=== PATIENT | female | born 1990 | race Two or more races ===

== ENCOUNTER 2016-08-23 | Outpatient (CLI) | payer OTHER | END 2016-08-23 01:57 | disposition EMS.NT | DX: R05 Cough (principal) ==

== ENCOUNTER 2016-08-23 02:42 | Emergency (ER) | payer OTHER ==
[2016-08-23] MEDS ORDERED: ACETAMINOPHEN 325 MG TABLET PO STA (04:04)
[2016-08-23] MEDS ORDERED: ACETAMINOPHEN 325 MG TABLET PO ONE (04:06)
== END 2016-08-23 04:13 | disposition home or self-care (01) ==
DX: J10.1 Influenza due to other identified influenza virus with other respiratory manifestations (principal)
CPT/HCPCS: 87275; 87276; 99283; A9270

== ENCOUNTER 2016-10-13 | Outpatient (CLI) | payer OTHER | END 2016-10-13 07:00 | disposition home or self-care (01) ==

== ENCOUNTER 2017-12-02 12:54 | Emergency (ER) | payer MEDICAID, OTHER ==
[2017-12-02 13:09] VITALS: BP 111/67
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
--- NOTE | 2017-12-02 14:35 | CT Preliminary Report ---
Exam: CT FACIAL BONES W/O IMPRESSION: 1. Moderate right mid face superficial edema. 2. No bony abnormality. [facility] SITE ID: [id number]
--- NOTE | 2017-12-02 14:41 | CT Report ---
EXAM: CT MAXILLOFACIAL WITHOUT CONTRAST EXAM DATE: 12/02/2017 02:05 PM. CLINICAL HISTORY: Right orbital injury. COMPARISONS: None. TECHNIQUE: Thin-section axial images were acquired of the face without contrast. Post-processing: Cor onal and sagittal reformats. Other: None. In accordance with CT protocol optimization, one or more of the following dose reduction techniques w ere utilized for this exam: automated exposure control, adjustment of mA and/or KV based on patient s ize, or use of iterative reconstructive technique. FINDINGS: Soft Tissue: Moderate amount of edema subcutaneous fat right mid face, small amount of edema subjacen t to thickened right platysma in the same region, and mild right pre-septal edema. No focal hematoma nor emphysema. Orbits: Symmetric and unremarkable. Bones: No fracture or bone lesion. Temporomandibular Joints: The temporomandibular joints are symmetric and normally located. Sinuses: Normal. No mucosal thickening or fluid levels. Other: None. IMPRESSION: 1. Moderate right mid face superficial edema. 2. No bony abnormality. [facility] Referring Provider Line: [phone] SITE ID: [id number]
== END 2017-12-02 14:57 | disposition home or self-care (01) ==
LOC: ED 12:54
DX: S00.83XA Contusion of other part of head, initial encounter (principal); W51.XXXA Accidental striking against or bumped into by another person, initial encounter
CPT/HCPCS: 70486; 99282

== ENCOUNTER 2018-05-02 15:53 | Outpatient (CLI) | payer OTHER | END 2018-05-02 15:54 | disposition critical access hospital (66) | LOC: EMS 15:53 | PROVIDERS: ATTEND Surgery | DX: R45.851 Suicidal ideations (principal) | CPT/HCPCS: A0425; A0429 ==

== ENCOUNTER 2018-05-02 16:16 | Emergency (ER) | payer MEDICAID, OTHER ==
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
[2018-05-02 16:41] LABS: BASOPHILS # (AUTO) 0.1 10^3/uL (0.0-0.1); BASOPHILS % (AUTO) 0.5 %; EOSINOPHILS % (AUTO) 0.4 %; HGB - HEMOGLOBIN 14.4 g/dL (12.0-16.0); LYMPHOCYTES # (AUTO) 1.8 10^3/uL (1.5-3.5); LYMPHOCYTES % (AUTO) 16.1 %; MEAN CORPUSCULAR HEMOGLOBIN 32.2 pg (27.0-31.0); MEAN CORPUSCULAR HGB CONC 34.9 g/dL (32.0-36.0); MEAN CORPUSCULAR VOLUME 92.3 fL (81.0-99.0); MEAN PLATELET VOLUME 9.7 fL (7.9-10.8); MONOCYTES # (AUTO) 0.8 10^3/uL (0.0-1.0); NEUTROPHILS # (AUTO) 8.3 10^3/uL (1.5-6.6); PLT - PLATELET COUNT 220 10^3/uL (130-450); RED BLOOD COUNT 4.49 10^6/uL (4.20-5.40); RED CELL DISTRIBUTION WIDTH 13.6 % (12.0-15.0); WHITE BLOOD COUNT 10.9 x10^3/uL (4.8-10.8)
[2018-05-02 16:56] LABS: ALBUMIN 4.8 g/dL (3.2-5.5); ALBUMIN/GLOBULIN RATIO 1.2 (1.0-2.2); ALKALINE PHOSPHATASE 93 IU/L (42-121); ALT ALANINE AMINOTRANSFERASE 19 IU/L (10-60); AST ASPARTATE AMINOTRANSFERASE 24 IU/L (10-42); BILIRUBIN,TOTAL 0.8 mg/dL (0.2-1.0); BUN - BLOOD UREA NITROGEN 12 mg/dL (6-20); CALCIUM 9.3 mg/dL (8.5-10.3); CARBON DIOXIDE - CO2 26 mmol/L (21-32); CHLORIDE 103 mmol/L (101-111); CREATININE 0.9 mg/dL (0.4-1.0); GFR - MDRD 76 (>89); GLUCOSE 100 mg/dL (70-100); LIPASE 24 U/L (22-51); SALICYLATE < 6.0 mg/dL; SODIUM 138 mmol/L (135-145); TOTAL PROTEIN 8.7 g/dL (6.7-8.2)
[2018-05-02 16:57] LABS: ACETAMINOPHEN < 10 ug/mL (10-30)
[2018-05-02 17:46] LABS: MUDS CUTOFF CONCENTRATIONS CUTOFF CONC BELOW:
[2018-05-02 17:49] LABS: BILIRUBIN,URINE NEGATIVE (NEGATIVE); GLUCOSE, URINE (UA) NEGATIVE (NEGATIVE); KETONES,URINE (UA) 15 mg/dL (NEGATIVE); LEUKOCYTE ESTERASE, URINE NEGATIVE (NEGATIVE); NITRITE,URINE POSITIVE (NEGATIVE); OCCULT BLOOD,URINE MODERATE (NEGATIVE); PROTEIN,URINE TRACE mg/dL (NEGATIVE); UROBILINOGEN,URINE 0.2 (NORMAL) E.U./dL (NORMAL)
[2018-05-02 17:55] LABS: CLARITY,URINE CLOUDY (CLEAR); HCG UR QUAL NEGATIVE
[2018-05-02 17:59] LABS: AMPHETAMINE SCREEN,URINE NEGATIVE (NEGATIVE); BENZODIAZEPINES SCREEN, URINE NEGATIVE (NEGATIVE); COCAINE SCREEN URINE NEGATIVE (NEGATIVE); METHADONE SCREEN, URINE NEGATIVE (NEGATIVE); METHAMPHETAMINES SCREEN, URINE NEGATIVE (NEGATIVE); OPIATE SCREEN, URINE NEGATIVE (NEGATIVE); OXYCODONE SCREEN, URINE NEGATIVE (NEGATIVE); PROPOXYPHENE SCREEN, URINE NEGATIVE (NEGATIVE); TRICYCLIC ANTIDEPRESSANT,URINE NEGATIVE (NEGATIVE)
[2018-05-02 18:00] LABS: BACTERIA,URINE Many /HPF (None Seen); RBC,URINE 0-5 /HPF (0-5); SQUAMOUS EPITHELIAL CELL,UR MANY Squamous (<= Few)
[2018-05-02] MEDS ORDERED: SERTRALINE 25 MG TABLET PO STA (21:45)
--- NOTE | 2018-05-02 22:00 | TELEPSYCH PHYS NOTE ---
Telepsych Note - CHIEF COMPLAINT/HX OF PRESENT ILLNESS Cheif Complaint and History of Present Illness: Chief Complaint: "I wanted to come here before I did something." HPI: The patient is a 27-year-old female with a history of depression. She presented the hospital complaining of depressed mood and suicidal thoughts or plan to cut herself or walk into traffic. The patient cites marital problems as the trigger for the depressed mood. She states that she has been having suicidal thoughts for the past few weeks. She is prescribed Zoloft but stopped it 2 weeks ago. - SI/HI/SELF HARM SI/HI/SELF HARM (CURRENT OR HISTORY OF):: SI - VIOLENCE/LEGAL/COLLATERAL Violence - Legal - Collateral: Violence: none Legal: none Collateral: n/a - PSYCHIATRIC HX/TREATMENT HX Psychiatric/Treatment Hx Other: Past Psychiatric History: No prior inpatient admissions. Current outpatient treatment-[facility], sees therapist and psychiatrist. No prior suicide attempts. - DRUG/ALCOHOL HX Substance use/abuse/alcohol text: none - MEDICAL HX Does the pt have a hx of MRSA?: No - SURGICAL HX Gynecologic: section - HOME MEDICATIONS Home Meds (as last confirmed): Patient History Medication Instructions Recorded Confirmed Sertraline [Zoloft] 25 mg 05/02/18 - ALLERGIES Allergies (as last confirmed): Allergies Allergy/AdvReac Type Severity Reaction Status Date / Time No Known Drug Allergies Allergy Verified 05/02/18 16:24 - FAMILY PSYCH/SUICIDE/SOCIAL HX-MENTAL Family - Suicide - Social Hx and Mental Status Exam: Family Psychiatric History: mother/grandmother-depression Social History: , lives with and 2 kids 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) Education: HS grad, some college (did not graduate) Stressors: see HPI History: none Abuse: none Mental Status Examination: Attitude and behavior: cooperative Speech: rapid, pressured Affect and mood: sad affect and mood Association and thought processes: linear Thought content: no delusions, + SI, no HI Perception: no hallucinations Sensorium, memory, and orientation: AAOx3 Intellectual functioning: average Insight and judgment: poor - PATIENT PROBLEM LIST (1) Major depressive disorder, recurrent severe without psychotic features Impression: The patient is a 27-year-old female with a history of Depressive. She is currently unstable with depressed mood and SI. Patient is not safe for discharge. Refer to inpatient care. Patient is agreeable to inpatient care - TREATMENT/PHARMACOLOGICAL RECOMMENDATION Treatment - Pharmacological - Therapy Recommendations: Treatment Recommendations: Admit to inpatient care, start medications Pharmacological: start Zoloft 25 mg daily Therapy: supportive Level of Care: inpatient - TIME SPENT & PROVIDER LOCATION Telepsych consultation conducted via videoconferencing: Yes List names and roles of persons who participated in consult: Chevy Douglas M.D. [facility] Telepsych Provider Location: Chevy Douglas M.D. Time Telepsych consult began: 00:10 Time Telepsych consult completed: 00:30
[2018-05-02 22:10] LABS: BILIRUBIN,URINE NEGATIVE (NEGATIVE); GLUCOSE, URINE (UA) NEGATIVE (NEGATIVE); KETONES,URINE (UA) TRACE mg/dL (NEGATIVE); LEUKOCYTE ESTERASE, URINE NEGATIVE (NEGATIVE); NITRITE,URINE POSITIVE (NEGATIVE); OCCULT BLOOD,URINE SMALL (NEGATIVE); PROTEIN,URINE NEGATIVE (NEGATIVE); UROBILINOGEN,URINE 0.2 (NORMAL) E.U./dL (NORMAL)
[2018-05-02 22:17] LABS: CLARITY,URINE CLEAR (CLEAR)
[2018-05-02 22:24] LABS: BACTERIA,URINE Many /HPF (None Seen); RBC,URINE 0-5 /HPF (0-5); SQUAMOUS EPITHELIAL CELL,UR FEW Squamous (<= Few)
--- NOTE | 2018-05-02 22:53 | ED Physician Documentation ---
ED Addendum - Addendum Addendum: 05/02/18 22:53After tele-psych consultation I saw and examined the patient. Briefly she had suicidal ideation but is no longer suicidal for me. I mainly went into the room to discuss the urine sample. She has no symptoms of UTI and after discussion we decided to wait for the culture. She wanted to be discharged. This was in contrast to the patella psychiatric consultation which recommended inpatient admission. I had a long discussion with the patient and her . She feels safe at home would like to be discharged. Given the language on the tele-psychiatric consultation, I could not good harmeet simply discharge her. That said I do not think she fits criteria for involuntary hospitalization. As such she will sign AGAINST MEDICAL ADVICE and she understands she is welcome to return at any time for further evaluation and treatment. We will culture her urine and she understands we may call her in a few days if the culture is positive.
[2018-05-02 23:04] VITALS: BP 122/68
== END 2018-05-02 23:07 | disposition left against medical advice (07) ==
LOC: EDUNIT# → ED 16:16
DX: F33.9 Major depressive disorder, recurrent, unspecified (principal); R45.851 Suicidal ideations; S40.212A Abrasion of left shoulder, initial encounter
CPT/HCPCS: 80053; 80306; 80307; 80320; 80329; 81001; 81025; 83690; 84443; 85025; 87086; 87181; 99283; A9270; G0425; Q3014; 36415; 81003